=== PATIENT | male | born 1990 | race African-American/Black ===

== ENCOUNTER 2017-01-02 11:12 | Emergency (ER) | payer SELFPAY ==
[~2017-01-02] VITALS: Ht 165.1 cm; Wt 74.2 kg
[~2017-01-02 11:12] MED LIST: NO DAILY MEDS; OXYC-46 PO
--- OUTSIDE RECORDS SUMMARY | 2017-01-02 11:16 | XMS REPORT | Continuity of Care Document ---
Author Author [facility] Organization [facility] Address Unknown Phone Unavailable Support Name Relationship Address Phone ALLAN BERNARD MD Caregiver [address] [place] [phone] Unavailable MARIANNE CASTILLO Next Of Kin [address] [place] [address] Insurance Providers Guarantor Chaim Castillo Address [address] [place] [address] Email [email or web address] [email or web address] Self Pay Subscriber's Name Chaim Castillo Relationship 18 Self Advance Directives Directive Response Recorded Date/Time Advanced Directives Type None 09/27/16 9:15am Chief Complaint and Reason for Visit Chief Complaint Upper Extremity Injury Reason for Visit Fracture of fifth metacarpal bone of right hand Problems Active Problems Medical Problem Onset Date Status Hx of nephrotic syndrome Unknown Acute Left ankle sprain Unknown Acute Leukocytosis, unspecified Unknown Acute Past Problems Medical Problem Onset Date Coronavirus infection Unknown Fracture of fifth metacarpal bone of right hand Unknown Left ankle sprain Unknown Pharyngitis Unknown Medications Current Home Medications Medication Dose Units Route Directions Days Qty Instructions Start Date No Daily Meds 06/28/16 Oxycodone Hcl/Acetaminophen (Percocet 5-325 Mg Tablet) 5-325 Tablet 1 Tab Oral Every 6 Hours for Pain 10 Tablet 09/27/16 Social History Social History Problem Response Recorded Date/Time Onset Date Status Chewing Tobacco Status No 09/27/2016 10:56am Not Applicable Not Applicable Hx Substance Use Y MARIJUANA 09/27/2016 10:56am Not Applicable Not Applicable Hx Alcohol Use Y OCC 09/27/2016 10:56am Not Applicable Not Applicable Tobacco Usage smoke 11/19/2015 10:20am Not Applicable Not Applicable Query Response Start Date Stop Date Smoking Status Current every day smoker Hospital Discharge Instructions No hospital discharge instructions. Plan of Care Discharge Date 09/27/16 11:22am Disposition 01 DISCHARGED HOME, SELF-CARE Condition at Discharge Stable Instructions/Education Provided Boxer Fracture (ED) Prescriptions See Medication Section Referrals ROHIT CACERES MD Address: [address] [place] [address] [place] [phone] Functional Status No functional status results. Allergies, Adverse Reactions, Alerts No known allergies. Immunizations Query Response on File Recorded Date/Time Hx Tetanus Toxoid Vaccination Yes 09/27/16 10:56am DTaP Vaccine History 2016 09/27/16 10:56am Influenza Vaccine Hx 2016 09/27/16 10:56am Tdap Vaccine Hx 2016 09/27/16 10:56am Vital Signs Acute Vital Signs Vital Response Date/Time Temperature (Fahrenheit) 97.9 deg F (96.8 - 99.1) 09/27/2016 11:22am Temperature (Calculated Celsius) 36.29779 degrees C (36.0 - 37.3) 09/27/2016 11:22am Pulse Rate (adult) 56 bpm (60 - 100) 09/27/2016 11:22am Respiratory Rate 20 breaths/min (10 - 20) 09/27/2016 11:22am O2 Sat by Pulse Oximetry 92 % (90 - 100) 09/27/2016 11:22am Blood Pressure 146/81 mm Hg 09/27/2016 11:22am Height (Feet) 5 feet 09/27/2016 9:15am Height (Inches) 5.00 inches 09/27/2016 9:15am Weight (Kilograms) 78.200 kg 09/27/2016 9:15am Body Mass Index (BMI) 28.0 09/27/2016 9:15am Results Laboratory Results Test Name Result Units Flags Reference Collection Date/Time Result Date/ Time Comments Group A Streptococcus Screen NEGATIVE NEGATIVE 09/10/2016 11:11am 11:27am Strep culture confirmation to follow Influenza Type A Antigen INDETERMINATE NEGATIVE 09/10/2016 11:11am 11:45am A dual positive is extremely rare. Recommend testing using the "Respiratory Panel, PCR". Influenza Type B Antigen INDETERMINATE NEGATIVE 09/10/2016 11:11am 11:45am A dual positive is extremely rare. Recommend testing using the "Respiratory Panel, PCR". Adenovirus (PCR) NEGATIVE NEGATIVE 09/10/2016 11:49am 09/10/2016 1: 16pm Coronavirus Type 229E (PCR) NEGATIVE NEGATIVE 09/10/2016 11:49am 1:16pm Coronavirus Type HKU1 (PCR) NEGATIVE NEGATIVE 09/10/2016 11:49am 1:16pm Coronavirus Type NL63 (PCR) NEGATIVE NEGATIVE 09/10/2016 11:49am 1:16pm Coronavirus Type OC43 (PCR) DETECTED A NEGATIVE 09/10/2016 11:49am 1:16pm Human Metapneumovirus (PCR) NEGATIVE NEGATIVE 09/10/2016 11:49am 1:16pm Enterovirus/Rhinovirus (PCR) NEGATIVE NEGATIVE 09/10/2016 11:49am 1:16pm Influenza Virus Type A (PCR) NEGATIVE NEGATIVE 09/10/2016 11:49am 1:16pm Influenza Virus Type B (PCR) NEGATIVE NEGATIVE 09/10/2016 11:49am 1:16pm Parainfluenza Type 1 (PCR) NEGATIVE NEGATIVE 09/10/2016 11:49am 09/10 1:16pm Parainfluenza Type 2 (PCR) NEGATIVE NEGATIVE 09/10/2016 11:49am 09/10 1:16pm Parainfluenza Type 3 (PCR) NEGATIVE NEGATIVE 09/10/2016 11:49am 09/10 1:16pm Parainfluenza Type 4 (PCR) NEGATIVE NEGATIVE 09/10/2016 11:49am 09/10 1:16pm Respiratory Syncytial Virus (PCR) NEGATIVE NEGATIVE 09/10/2016 11: 49am 09/10/2016 1:16pm Bordetella parapertussis DNA (PCR) NEGATIVE NEGATIVE 09/10/2016 11: 49am 09/10/2016 1:16pm Chlamydia pneumoniae DNA (PCR) NEGATIVE NEGATIVE 09/10/2016 11:49am 09/10/2016 1:16pm Mycoplasma pneumoniae (PCR) NEGATIVE NEGATIVE 09/10/2016 11:49am 1:16pm White Blood Count 13.5 T/MM3 H 4.5-11.0 09/27/2016 10:02am 09/27/2016 10 :15am Red Blood Count 4.97 M/MM3 4.50-5.90 09/27/2016 10:02am 09/27/2016 10: 15am Hemoglobin 15.9 GM/DL 13.5-17.5 09/27/2016 10:02am 09/27/2016 10:15am Hematocrit 48.2 % 41-53 09/27/2016 10:02am 09/27/2016 10:15am Mean Corpuscular Volume 97.0 UM3 80-100 09/27/2016 10:02am 09/27/2016 10:15am Mean Corpuscular Hemoglobin 32.0 UUG 26-34 09/27/2016 10:02am 2016 10:15am Mean Corpuscular Hemoglobin Concent 33.0 GM/DL 31-37 09/27/2016 10:02am 09/27/2016 10:15am RDW Standard Deviation 48.0 FL 36.9-50.2 09/27/2016 10:02am 09/27/2016 10:15am Platelet Count 346 T/MM3 130-400 09/27/2016 10:02am 09/27/2016 10:15am Mean Platelet Volume 10.2 UM3 9.4-12.4 09/27/2016 10:02am 09/27/2016 10 :15am Neutrophils (%) (Auto) 67.2 % H 33-66 09/27/2016 10:am 09/27/2016 10: 15am Lymphocytes (%) (Auto) 23.4 % 23-45 09/27/2016 10:am 09/27/2016 10: 15am Monocytes (%) (Auto) 8.1 % 0-9.0 09/27/2016 10:am 09/27/2016 10:15am Eosinophils (%) (Auto) 1.0 % 0-4 09/27/2016 10:02am 09/27/2016 10:15am Basophils (%) (Auto) 0.1 % 0-2 09/27/2016 10:02am 09/27/2016 10:15am Immature Granulocyte % (Auto) 0.2 % 0.0-0.5 09/27/2016 10:02am 2016 10:15am Absolute Neutrophils (auto) 9.1 T/MM3 H 1.8-7.7 09/27/2016 10:02am 09/27 10:15am Absolute Lymphocytes (auto) 3.2 T/MM3 1-4.8 09/27/2016 10:02am 2016 10:15am Absolute Monocytes (auto) 1.1 T/MM3 H 0-0.8 09/27/2016 10:02am 2016 10:15am Absolute Eosinophils (auto) 0.1 T/MM3 0-0.5 09/27/2016 10:02am 2016 10:15am Absolute Basophils (auto) 0.0 T/MM3 0-0.2 09/27/2016 10:02am 2016 10:15am Absolute Immature Granulocyte (auto 0.03 T/MM3 0.00-0.03 09/27/2016 10: 02am 09/27/2016 10:15am Icterus Index < 2 0-7 09/27/2016 10:02am 09/27/2016 10:24am Chemistry Specimen Hemolysis < 15 0-25 09/27/2016 10:02am 09/27/2016 10:24am 0-25: Specimen Exhibited No Hemolysis. Turbidity < 20 0-20 09/27/2016 10:02am 09/27/2016 10:24am Sodium Level 142 MEQ/L 134-144 09/27/2016 10:02am 09/27/2016 10:24am Potassium Level 4.4 MEQ/L 3.6-5 09/27/2016 10:02am 09/27/2016 10:24am Chloride Level 105 MEQ/L 98-107 09/27/2016 10:02am 09/27/2016 10:24am Carbon Dioxide Level 27 MEQ/L 22-30 09/27/2016 10:02am 09/27/2016 10: 24am Anion Gap 10 MEQ/L 5-15 09/27/2016 10:02am 09/27/2016 10:24am Blood Urea Nitrogen 13.0 MG/DL 9-20 09/27/2016 10:02am 09/27/2016 10: 24am Creatinine 0.8 MG/DL 0.8-1.5 09/27/2016 10:02am 09/27/2016 10:24am BUN/Creatinine Ratio 16 RATIO 6-26 09/27/2016 10:02am 09/27/2016 10: 24am Glomerular Filtration Rate Calc 115 09/27/2016 10:02am 09/27/2016 10:24am Glucose Level 111 MG/DL H 75-110 09/27/2016 10:0209/27/2016 10:24am Calculated Osmolality 274 MOSM/KG 261-280 09/27/2016 10:022016 10:24am Calcium Level 9.8 MG/DL 8.4-10.2 09/27/2016 10:02am 09/27/2016 10:24am Total Bilirubin 0.60 MG/DL 0.20-1.30 09/27/2016 10:02am 09/27/2016 10: 24am Alkaline Phosphatase 143 U/L H 38-126 09/27/2016 10:02am 09/27/2016 10: 24am Total Protein 8.5 G/DL H 6.3-8.2 09/27/2016 10:02am 09/27/2016 10:24am Albumin 4.5 G/DL 3.5-5.0 09/27/2016 10:02am 09/27/2016 10:24am Globulin 4.0 G/DL H 2.4-3.6 09/27/2016 10:02am 09/27/2016 10:24am Albumin/Globulin Ratio 1.1 RATIO 1.1-2.2 09/27/2016 10:02am 09/27/2016 10:24am Aspartate Amino Transf (AST/SGOT) 28 U/L 17-59 09/27/2016 10:02am 09/27 10:24am Alanine Aminotransferase (ALT/SGPT) 27 U/L 21-72 09/27/2016 10:02am 04/2017 10:24am C-Reactive Protein 5.4 MG/L 0-9 09/27/2016 10:03am 09/27/2016 10:28am Microbiology Results Procedure Source Organism/Result Collection Date/Time Result Date/Time Result Status Group A Streptococcus Culture Throat STREP PYOGENES (GRP A) 09/10/2016 11: 27am 09/11/2016 10:34am Final Name: CHAIM CASTILLO Unit #: [id number] : 1990 Sex: M Admit Date: Loc / Svc: ED Discharge Date: DIAGNOSTIC IMAGING REPORT Report #: [id number] [facility] [place] Indication: ITS.REASON: trauma, dorsal swelling PROCEDURE: HAND RIGHT 3 VIEW: Encounter: Initial Comparison: None Findings: Minimally displaced and mild angular-related fracture of the fifth metacarpal neck. No additional acute fracture or dislocation seen. Joint spaces appear normal. Dorsal soft tissue swelling. No discrete subcutaneous gas identified. Impression: Closed posttraumatic boxer's fracture of the fifth metacarpal neck. . Procedures No known history of procedures. Encounters Encounter Location Arrival/Admit Date Discharge/Depart Date Attending Provider Departed Emergency Room [facility] 09/27/16 9:12am 09/27/16 11: 22am ALLAN BERNARD MD Departed Emergency Room [facility] 09/10/16 10:43am 09/10/16 1: 38pm JESSICA PATEL DO Recent Diagnosis
--- OUTSIDE RECORDS SUMMARY | 2017-01-02 11:16 | XMS REPORT | Continuity of Care Document ---
Author Author [facility] Organization [facility] Address Unknown Phone Unavailable Allergies Active Description Code Type Severity Reaction Onset Reported/Identified Relationship to Patient Clinical Status Yes No Known Drug Intolerances No Known Drug Intolerances Drug Allergy Unknown N/A 03/21/2007 Yes No Known Contrast Allergies No Known Contrast Allergies Drug Allergy Unknown N/A 07/25/2007 Yes No Known Drug Allergies No Known Drug Allergies Drug Allergy Unknown N/A 07/25/2007 Yes No Known Food Allergies No Known Food Allergies Drug Allergy Unknown N/A 07/25/2007 Yes NO KNOWN LATEX ALLERGY/SENSITI NO KNOWN LATEX ALLERGY/SENSITI Drug Allergy Unknown N/A 2006 Yes No Known Allergies No Known Allergies Drug Allergy Unknown N/A 06/07/2016 Medications Problems Procedures Results Encounters ACCT No. Visit Date/Time Discharge Status Pt. Type Provider Facility Loc./Unit Complaint [id number] 06/07/2016 10:04:00 2015 11:19:00 DIS Emergency Taina HALL, Layton Burroughs [facility]
[2017-01-02 11:26] VITALS: Ht 165.1 cm; Wt 74.2 kg
--- NOTE | 2017-01-02 12:12 | ERPDOC ---
Departure Disposition Decision Date: January 02, 2017 Disposition Decision Time: 14:22 Disposition: 07 AGAINST MEDICAL ADVICE Impression Impression Impression: Primary Impression: Dehydration Additional Impression: Rhabdomyolysis Rhabdomyolysis type: non-traumatic Qualified Codes: M62.82 - Rhabdomyolysis Condition: Against Medical Advice Seen By: Mid-level only Patient Instructions: Dehydration (ED), Rhabdomyolysis (ED) Problems/Meds/Labs Reviewed?: Yes Medications reviewed and manag: Yes Follow up care ordered?: Yes Mental Status: Alert, Oriented HPI - General Medical General Chief Complaint: Acute Medical Problem Stated Complaint: BODY CRAMPS, BLOOD IN VOMIT,EXHAUSTION Time Seen by Provider: 12:11 Source: patient HPI - General Medical Initial Comments 26-year-old male presents to ER with complaint of generalized body aches and and generalized muscle cramping for the past 3 days. Patient also reports one emesis this morning which had a few specks of blood in it. 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 Was drinking Gatorade yesterday to help replenish any electrolyte loss. Took two 200 mg ibuprofen this morning which did help some with the body aches. Arrives with report of being mildly nauseated, mild epigastric discomfort and report slight non-productive cough. Denies fevers, chills, shortness of breath, diarrhea, hematuria, dysuria Associated Symptoms: cough, malaise, DENIES: chest pain, diaphoresis, fever/ chills, headaches, loss of appetite, nausea/vomiting, rash, seizure, shortness of breath, syncope, weakness Allergies: Coded Allergies: No Known Allergies (Unverified , 01/02/17) Past History Past Medical History Metabolic: diabetes (type II borderline), hypercholesterolemia, hypertension Cardiac: DENIES: angina Respiratory: DENIES: asthma GI: DENIES: ulcers Male: other (nephrotic syndrome), renal failure Neurological: DENIES: seizures Musculoskeletal: DENIES: rheumatoid arthritis Psychological: DENIES: depression Surgical History General: other (kidney biopsy) Family History Family PMH: FOUND: other (noncontributory) Social History Does patient use chewing tobac: No Second Hand Exposure: No Substance Use Type: does not use Alcohol Intake: occasionally Last Drink: unknown Marital Status: Single Housing: house Service: No Current Occupational Status: employed Occupational Hazard: No Advance Directives: Yes Full Code Review of Systems Constitutional Constitutional: DENIES: chills, dizziness, fever, weakness Eyes General: DENIES: erythema, exudate Lids/Accessories: DENIES: erythema, swelling ENMT Ears: DENIES: pain Sinuses: DENIES: congestion, rhinorrhea Mouth/Throat: DENIES: sore throat Cardiovascular Cardiac: DENIES: chest pain, murmur Rhythm/Rate: DENIES: palpitations Pulmonary Respiratory: cough, see HPI, DENIES: dyspnea GI Upper Abdomen: hematemesis, nausea, vomiting, DENIES: pain Lower Abdomen: pain, DENIES: diarrhea General: DENIES: dysuria, pain Musculoskeletal General: pain (generalized body aches) Integumentary Skin: DENIES: color change, itching, rash Neurological General: DENIES: ataxia, change in strength, numbness, paralysis/paresis, weakness Psychiatric Psychiatric: DENIES: anxiety, depression, nervousness Physical Exam General General Nourishment: well nourished, well developed, no acute distress, adult General Body Habitus: disheveled Vitals and Pain First Documented Vital Signs Date Time Temp Pulse Resp B/P Pulse Ox O2 Delivery O2 Flow Rate FiO2 01/02/17 11:26 98.0 70 16 141/97 98 Room Air Weight: Kilograms: 74.200 Height (feet): 5 Height (inches): 5.00 Triage Pain Scale: Eyes (brief) Eyes Brief: found: EOMI, PERRL ENMT (brief) ENMT Brief: FOUND: TM clear, TM good light reflex, mucosa moist, NOT FOUND: nasal exudate, nasal swelling, pharnyx erythema Neck (brief) Neck: FOUND: trachea midline, NOT FOUND: adenopathy, spasm, tenderness, thyromegaly Respiratory (brief) Respiratory: FOUND: clear all alamo, equal bilaterally, symmetrical Cardiovascular (brief) Cardiac: FOUND: regular rate, regular rhythm Abdomen Inspection: NOT FOUND: distention Palpation: FOUND: soft, tender (mild epigastric TTP), NOT FOUND: Rosving's sign , hepatomegaly, involuntary guarding, rebound, splenomegaly, voluntary guarding Auscultation: FOUND: normoactive (x4) Musculoskeletal (brief) Musculoskeletal Brief: NOT FOUND: deformity, tenderness Integumentary (brief) Integumentary Brief: FOUND: dry, pink, warm Neurologic (brief) Neurological Brief: FOUND: CN w/o gross def to obs, motor-no gross deficits, sensory-no gross deficits Psychiatric (brief) Psychiatric Brief: FOUND: alert, normal affect, oriented Differential Diagnoses Considering: Biliary Colic, Dehydration, Gastroenteritis, Hypokalemia, Hypoglycemia, Pancreatitis, Pneumonia, Viral Syndrome, Other (heat exhaustion) Progress Results/Orders Orders Procedure Category Date Status Time Cbc W/Auto LAB 01/02/17 Complete Diff-Reflex Manual 12:17 Cmp - Comprehensive LAB 01/02/17 Complete Metabolic 12:17 Lipase LAB 01/02/17 Complete 12:17 Ondansetron Odt PHA 01/02/17 Complete (Zofran Odt) 12:30 Ck - Cpk LAB 01/02/17 Complete Normal Saline (Normal PHA 01/02/17 Complete Saline Iv) 13:45 Iv Lock (Ed Only) EDM 01/02/17 Transmitted 13:42 UA, LAB 01/02/17 Complete Dip&Micro(Complete) & 13:53 Normal Saline (Normal PHA 01/02/17 Complete Saline Iv) 14:45 Lab Results Laboratory Tests Test 01/02/17 13:14 01/02/17 13:53 White Blood Count 13.1T/MM3 Red Blood Count 5.62M/MM3 Hemoglobin 18.0GM/DL Hematocrit 51.8% Mean Corpuscular Volume 92.2UM3 Mean Corpuscular Hemoglobin 32.0UUG Mean Corpuscular Hemoglobin Concent 34.7GM/DL RDW Standard Deviation 45.3FL Platelet Count 287T/MM3 Mean Platelet Volume 10.3UM3 Immature Granulocyte % (Auto) 0.2% Neutrophils (%) (Auto) 60.2% Lymphocytes (%) (Auto) 30.6% Monocytes (%) (Auto) 7.9% Eosinophils (%) (Auto) 0.8% Basophils (%) (Auto) 0.3% Absolute Immature Granulocyte (auto 0.02T/MM3 Absolute Neutrophils (auto) 7.9T/MM3 Absolute Lymphocytes (auto) 4.0T/MM3 Absolute Monocytes (auto) 1.0T/MM3 Absolute Eosinophils (auto) 0.1T/MM3 Absolute Basophils (auto) 0.0T/MM3 Turbidity < 20 Sodium Level 141MEQ/L Potassium Level 4.5MEQ/L Chloride Level 100MEQ/L Carbon Dioxide Level 21MEQ/L Anion Gap 20MEQ/L Blood Urea Nitrogen 51.0MG/DL Creatinine 1.8MG/DL Glomerular Filtration Rate Calc 45 BUN/Creatinine Ratio 28RATIO Glucose Level 109MG/DL Calculated Osmolality 286MOSM/KG Calcium Level 10.3MG/DL Total Bilirubin 1.00MG/DL Icterus Index < 2 Aspartate Amino Transf (AST/SGOT) 77U/L Alanine Aminotransferase (ALT/SGPT) 48U/L Alkaline Phosphatase 137U/L Total Creatine Kinase 3909U/L Total Protein 9.2G/DL Albumin 5.3G/DL Globulin 3.9G/DL Albumin/Globulin Ratio 1.4RATIO Lipase 104U/L Chemistry Specimen Hemolysis < 15 Urine Collection Type Cleancatch-midstream Urine Color Yellow Urine Turbidity Clear Urine pH 5.5 Urine Specific Morven >=1.030 Urine Protein 1+ Urine Glucose (UA) Negative Urine Ketones Negative Urine Blood Negative Urine Nitrite Negative Urine Bilirubin Negative Urine Urobilinogen 0.2EU/DL Urine Leukocyte Esterase Negative Urine RBC 0-1/HPF Urine WBC 0-1/HPF Urine Squamous Epithelial Cells 0-5 Urine Bacteria Trace Urine Hyaline Casts 30-50/LPF Urine Waxy Casts 5-10/LPF Urine Mucus Present Urine Culture Indicated Cult not indicated Medications Current ED Medications Ondansetron HCl 4 mg 4 mg O ONCE PO Last administered on 01/02/17 12:26; Start 01/02/17 at 12:30; Stop 01/02/17 at 12:31; Status DC Sodium Chloride 1,000 ml @ 0 mls/hr Q0M ONCE IV Last administered on 13:52; Start 01/02/17 at 13:45; Stop 01/02/17 at 13:46; Status DC Sodium Chloride (Normal Saline IV) 1,000 ml @ 0 mls/hr Q0M ONCE IV Last administered on 01/02/17 14:55; Start 01/02/17 at 14:45; Stop 01/02/17 at 14:46 ; Status DC Progress Progress Patient declines IV at this time and IV fluids. Would prefer to wait and see what labs indicate. WBC 13.1, no bands BUN 51.8 Creatinine 1.8 I discussed labs with patient and that he is dehydrated. Patient agrees to IV and IV fluids. CK 3909 I discussed with patient that his CK is elevated which is consistent to rhabdomyolysis. Patient reports he is feeling better after fluids. I discussed need for admission for hydration and repeat labs. Patient declines admission. I discussed risks of leaving against medical advice. Patient signed out AMA. LUCAS MONTES DE OCA APRN January 02, 2017 12:12
--- NOTE | 2017-01-02 12:13 | NUR ---
SHABNAM PICHARDO IN
--- OUTSIDE RECORDS SUMMARY | 2017-01-02 12:24 | XMS REPORT | Continuity of Care Document ---
Author Author [facility] Organization [facility] Address Unknown Phone Unavailable Allergies Active [...] Status Pt. Type Provider Facility Loc./Unit Complaint [id number] 06/07/2016 10:04:00 2015 11:19:00 DIS Emergency Taina HALL, Layton Burroughs [facility]
--- NOTE | 2017-01-02 12:29 | NUR ---
ACTIVITY PATIENT AMBULATORY TO RESTROOM, TOLERATES ACTIVITY WELL. UA GIVEN
[2017-01-02] MEDS ORDERED: ONDANSETRON ODT 4 MG TAB PO ONE (12:30)
[2017-01-02 13:24] LABS: BASOPHILS % (AUTO) 0.3 % (0-2); EOSINOPHILS # (AUTO) 0.1 T/MM3 (0-0.5); EOSINOPHILS % (AUTO) 0.8 % (0-4); HCT - HEMATOCRIT 51.8 % (41-53); IMMATURE GRANULOCYTE # (AUTO) 0.02 T/MM3 (0.00-0.03); IMMATURE GRANULOCYTE % (AUTO) 0.2 % (0.0-0.5); LYMPHOCYTES % (AUTO) 30.6 % (23-45); MEAN CORPUSCULAR HGB CONC(MCHC 34.7 GM/DL (31-37); MEAN CORPUSCULAR VOLUME 92.2 UM3 (80-100); MEAN PLATELET VOLUME 10.3 UM3 (9.4-12.4); MONOCYTES % (AUTO) 7.9 % (0-9.0); NEUTROPHILS #(AUTO)-ABSOLUTE 7.9 T/MM3 (1.8-7.7); NEUTROPHILS % (AUTO) 60.2 % (33-66); RED BLOOD COUNT 5.62 M/MM3 (4.50-5.90); WBC - WHITE BLOOD COUNT 13.1 T/MM3 (4.5-11.0)
[2017-01-02 13:35] LABS: ALBUMIN 5.3 G/DL (3.5-5.0); ALBUMIN/GLOBULIN RATIO 1.4 RATIO (1.1-2.2); ALKALINE PHOSPHATASE 137 U/L (38-126); ALT (SGPT) 48 U/L (21-72); ANION GAP 20 MEQ/L (5-15); AST (SGOT) 77 U/L (17-59); BUN/CREATININE RATIO 28 RATIO (6-26); CALCIUM 10.3 MG/DL (8.4-10.2); CHLORIDE 100 MEQ/L (98-107); CO2 - CARBON DIOXIDE 21 MEQ/L (22-30); CREATININE 1.8 MG/DL (0.8-1.5); GLOMERULAR FILTRATION RATE 45; GLUCOSE 109 MG/DL (75-110); POTASSIUM 4.5 MEQ/L (3.6-5); SODIUM 141 MEQ/L (134-144); TOTAL PROTEIN 9.2 G/DL (6.3-8.2)
[2017-01-02] MEDS ORDERED: NORMAL SALINE 1,000 ML IV ONE ×2 (13:45→14:45)
[2017-01-02 13:59] LABS: BLOOD, URINE NEGATIVE (NEGATIVE); COLOR,URINE YELLOW (YELLOW); LEUKOCYTE ESTERASE ,URINE NEGATIVE (NEGATIVE); NITRITE,URINE NEGATIVE (NEGATIVE); UROBILINOGEN,URINE 0.2 EU/DL (NORMAL)
[2017-01-02 14:00] LABS: LIPASE 104 U/L (23-300)
[2017-01-02 14:06] LABS: BACTERIA,URINE TRACE (NEGATIVE); HYALINE CASTS, URINE 30-50 /LPF; MUCUS,URINE PRESENT; RBC,URINE 0-1 /HPF (0-3); SQUAMOUS EPITHELIAL CELL,UR 0-5; WBC,URINE 0-1 /HPF (0-5)
[2017-01-02 15:34] VITALS: BP 125/69; PULSE 68; RESP 16; TEMP 97.5; O2SAT 100
--- NOTE | 2017-01-02 15:34 | NUR ---
AMA PATIENT REQUESTS TO LEAVE AGAINST MEDICAL ADVICE. Mitesh MONTES DE OCA APRN HAS DISCUSSED RISKS WITH PATIENT AND PATIENT V/U.
== END 2017-01-02 15:34 | disposition left against medical advice (07) ==
LOC: ED 11:12
DX: E86.0 Dehydration (principal); M62.82 Rhabdomyolysis
CPT/HCPCS: 36415; 80053; 81001; 82550; 83690; 85025